=== PATIENT | female | born 1975 | race Caucasian/White ===

== ENCOUNTER 2016-04-17 09:05 | Inpatient (IN) ==
[2016-04-17] MEDS ORDERED: Albuterol 2.5 MG/3 ML NEBULIZER IH ONE (09:23)
[2016-04-17] MEDS ORDERED: CeFAZolin Pre 3,000 MG/100 ML 3,000 MG/100 ML BAG IVPB ONE (09:23)
[2016-04-17] MEDS ORDERED: MetroNIDAZOLE 500 MG/100 ML 500 MG/100 ML BAG IVPB ONE (09:24)
[2016-04-17] MEDS ORDERED: *HR* Belladonna Alkaloids/Opium 30 MG RECTAL SUPPOSITORY RC ONE (09:28)
[2016-04-17] MEDS ORDERED: Bupivacaine/EPI 1:200k 0.25%PF 10 ML VIAL INFILT ONE (09:29)
--- NOTE | 2016-04-17 09:29 | History & Physical Report ---
Date of Encounter: 04/17/16 Time of Encounter: 09:28 24 Hour HP Update - Instructions Instructions: If the History and Physical is less than 30 days old and was completed prior to A.M. admission and or procedure and has NOT been updated on calendar day of procedure please complete this update prior to performing procedure. - Update Patient reports changes in Medical Condition: No Changes in assessment/condition: No Changes in Medication: No Preop tests/diagnostics Reviewed: Yes Surgery Remains Indicated: Yes Consent for Planned Operative Procedure(s) Verified: Yes - Pre-Operative Checklist Preoperative Checklist Indicated: Yes Prophylactic Antibiotic Ordered: Yes Home Medications Include Beta Kiana: No Beta Kiana Taken Today (Day of Surgery): No Beta Kiana Taken Yesterday (Day Prior to Surgery): No Is VTE Prophylaxis Indicated?: Yes
[2016-04-17] MEDS ORDERED: Ringers Solution, Lactated 1,000 ML IVC SCH ×2 (09:30→14:07)
--- NOTE | 2016-04-17 10:12 | Anesthesia Evaluation PreOp ---
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: Other (Bipolar disorder) Other Medical History: Diabetes Type II ("pre-diabetes") Anesthesia History: Problems (nausea on only one occassion) Alcohol Use: rarely Drug use: none Medications and Allergies Albuterol Sulfate [Ventolin Hfa] 2 puff IH Q4H PRN 04/17/16 [History] Amitriptyline [Elavil] 10 mg PO BID 04/17/16 [History] Cetirizine HCl [24Hour Allergy] 10 mg PO DAILY 04/17/16 [History] Ergocalciferol (VITAMIN D2) [Vitamin D2] 50,000 unit PO QWEEK 04/17/16 [History] Ferrous Gluconate 324 mg PO DAILY 04/17/16 [History] Fluticasone Propionate Nasal [Flonase] 1 spray NS BID 04/17/16 [History] HYDROcodone/Acet 5/325 mg [[place]lin 5-325 mg] 1 tab PO Q6H PRN 04/17/16 [History] Nabumetone [Relafen] 500 mg PO BID 04/17/16 [History] Omeprazole [PriLOSEC] 20 mg PO BIDAC 04/17/16 [History] Oxcarbazepine [Oxtellar Xr] 300 mg PO BID 04/17/16 [History] Oxybutynin Chloride [Ditropan Xl] 10 mg PO DAILY 04/17/16 [History] Psyllium Husk [Fiber] 0.52 gm PO DAILY 04/17/16 [History] SUMAtriptan Succinate [Imitrex] 100 mg PO DAILY PRN 04/17/16 [History] Tizanidine HCl 4 mg PO HS 04/17/16 [History] Topiramate [Topamax] 50 mg PO QAM 04/17/16 [History] Topiramate [Topamax] 100 mg PO HS 04/17/16 [History] Trazodone HCl 100 - 200 mg PO Q12H 04/17/16 [History] Allergies rofecoxib [From Vioxx] Allergy (Severe, Verified 01/03/15 19:34) Swelling of Lip/Tongue/Throat Asenapine [From Saphris] Allergy (Intermediate, Verified 01/03/15 19:34) Hives mineral oil [From Aquaphor] Allergy (Intermediate, Verified 01/03/15 19:34) Blister petrolatum,hydrophilic [From Aquaphor] Allergy (Intermediate, Verified 01/03/15 19:34) Blister risperidone [From Risperdal] Allergy (Intermediate, Verified 01/03/15 19:34) Hives lamotrigine [From Lamictal] Allergy (Verified 04/10/16 11:17) Hives ana luisa bandage Allergy (Uncoded 04/10/16 11:17) Hives - Meds/Allergy Pre-op Review Medications Reviewed: Yes Allergies Reviewed: Yes Beta Blockers on Current Med List: No Anesthesia Results - Labs Laboratory Tests 02/04/16 02/04/16 02/04/16 09:44 09:44 09:44 WBC 5.3 Hgb Hct 40.2 Plt Count 262 Sodium 139 Potassium 3.9 Chloride 113 H Carbon Dioxide 18 L BUN 14 Creatinine 0.80 Est GFR ( Amer) > 60 Est GFR (Non-Af Amer) > 60 BUN/Creatinine Ratio 18 Glucose 104 H Est Mean Plasma Glucose 94 Hemoglobin A1c 4.9 Calculated Osmolality 289 Calcium 9.2 04/10/16 11:25 WBC Hgb 13.6 Hct Plt Count Sodium Potassium Chloride Carbon Dioxide BUN Creatinine Est GFR ( Amer) Est GFR (Non-Af Amer) BUN/Creatinine Ratio Glucose Est Mean Plasma Glucose Hemoglobin A1c Calculated Osmolality Calcium Anesthesia Exam Last Vital Signs Temp 98.1 F 04/17/16 09:32 Pulse 92 04/17/16 09:32 Resp 18 04/17/16 09:32 BP 119/81 04/17/16 09:32 Pulse Ox 96 04/17/16 09:32 Weight: 135 kg NPO (# of Hours): >> 8 hrs - HEENT Pupil (Motor): Pupils equal, EOMI Mallampati: III Teeth: Normal Oral Opening: Greater than 3 - D[employer]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
[2016-04-17] MEDS ORDERED: Metoclopramide 10 MG/2 ML VIAL ONE (10:13)
[2016-04-17] MEDS ORDERED: Gabapentin 300 MG CAPSULE ONE (10:13)
[2016-04-17] MEDS ORDERED: Acetaminophen IV 1,000 MG/100 ML INFUS..BTL ONE (10:14)
[2016-04-17] MEDS ORDERED: Famotidine 20 MG/2 ML VIAL ONE (10:14)
[2016-04-17] MEDS ORDERED: *HR* HYDROmorphone (PF) 1 MG/ML SYRINGE IVP PRN (12:40)
[2016-04-17] MEDS ORDERED: *HR* Promethazine 25 MG/ML VIAL IVP PRN (12:40)
[2016-04-17] MEDS ORDERED: *HR* Labetalol 100 MG/20 ML MDV IVP PRN (12:40)
--- NOTE | 2016-04-17 12:53 | Operative Note ---
Date of procedure: 04/17/16 Pre-op diagnosis: Abnormal uterine bleeding, dysmenorrhea, failed endometrial ablation Post-op diagnosis: same (With pelvic adhesions) Procedure: Robotic total laparoscopic hysterectomy bilateral salpingectomy and lysis of adhesions Complications: None Anesthesia: MITCHEL Surgeon: Oziel Parada Museum Security Chief: Renuka Russell Estimated blood loss (cc): 150 Specimen: Uterus cervix and bilateral tubes Condition: stable Disposition: PACU Procedure in Detail: Patient is a 41-year-old female who presented for robotic hysterectomy secondary to menorrhagia dysmenorrhea with failed endometrial ablation. Patient been having very heavy painful periods that are progressively getting worse. Patient has had an endometrial ablation in the past which worked for a while but has failedbleeding all the time. Patient states the pain associated with the bleeding is significant to the point she cannot tolerate the discomfort anymore. She is not a candidate for another ablation and has failed medical management. Patient has a history of 2 previous sections recommendation was robotic hysterectomy. Procedure: Patient was taken operating room where general anesthesia was found be adequate. She was placed in the dorsal lithotomy position prepped and draped in usual fashion. Timeout was then obtained, weighted speculum was placed in the vagina the anterior lip of the cervix was grasped with a single- tooth tenaculum uterus sounded to approximate 12 cm. Based on results of the ultrasound I suspected I perforated the uterus because uterus should have only been 8 cm. We decided this time we would still use a large Kadi tip to be safe. The antral of the cervix was secured with a suture and a 10 cm tip was then inserted into the cavity with a 3 cm cup and secured in place. Once this is in place that is present into the abdomen approximately 5 cm superior to them like us a 12 mm incision was then made and a 12 mm trocar was inserted under direct visualization. A pneumoperitoneum was obtained with 4 L of CO2 gas. She was noted to have omental adhesions to the intra-abdominal wall. 2 more incisions were made in the right and left flank and 2 8 mm trochars were inserted and a fourth incision was made approximately 12 cm distal and lateral on the right side and a 12 mm trocar was inserted. The da Aida robot was then port and secured in place. Attention was then turned to the console the omental adhesions were then taken down and attention was then turned to the pelvis it was noted at this time we had perforated the uterus with the balloon outside of the fundus. We still had good manipulation and the procedure was continued. Both ovaries were normal the fallopian tubes were taken off the ovary to the mesosalpinx and the ovary was from the uterus through the utero-ovarian ligament. Round ligaments were then transected we then skeletonized the uterine vessels they were identified and cauterized and transected. The anterior leaf of the broad ligament was opened up and were able to dissect off the bladder reflection from the lower uterine segment and all ovary down to the cervix. We are able to palpate the Kadi cup anteriorly and posteriorly entering enterally posteriorly find and the cup we then transected around the cup removing the uterus from the vagina. Once everything was free air was removed through the vagina. Pelvis was copiously irrigated no active bleeding noted the vaginal cuff was then closed using a 0 V lock suture in a running stitch from both corners to midline. Good hemostasis is noted pelvis was copiously irrigated and Kiley was applied to the were surfaces. It was at this point we terminated the procedure all instruments were removed the pneumoperitoneum released for by the removal of the trochars. The skin incisions were closed using a 4 Vicryl and subcutaneous manner. A B&O suppository was then placed rectally and the patient was taken to recovery room in stable condition. All needles lap sponge counts were correct 3 she did receive preoperative antibiotics.
--- NOTE | 2016-04-17 13:54 | Anesthesia Evaluation Post Op ---
Date of Encounter: 04/17/16 Time of Encounter: 13:52 - Vital Signs Vital Signs: Last Vital Signs Temp 97.1 F L 04/17/16 13:46 Pulse 83 04/17/16 13:46 Resp 16 04/17/16 13:46 BP 106/81 04/17/16 13:46 Pulse Ox 99 04/17/16 13:46 - Lungs Lungs: Clear Ascult./Percussion - Airway Airway: Non-obstructed - Cardiovascular Regular Rate - Mental Status Mental Status: Alert & Oriented, Answers Appropriately - Pain Pain Scale: 2 - Nausea Vomiting Nausea Vomiting: Not Present - Hydration Hydration: Ice chips - Discharge PostOp Status: Transfer Patient to floor
[2016-04-17] MEDS ORDERED: Naloxone 0.4 MG/ML INJ IVP PRN (14:07)
[2016-04-17] MEDS ORDERED: SUMAtriptan succinate 50 MG TABLET PO PRN (14:07)
[2016-04-17] MEDS: *HR* OxyCODONE/APAP 5/325 TABLET PO PRN (16:04)
[2016-04-17] MEDS: Fluticasone Propionate Nasal 50 MCG/SPRAY BOTTLE NS SCH (20:18)
[2016-04-17] MEDS: OXcarbazepine 150 MG TABLET PO SCH (20:31)
[2016-04-17] MEDS ORDERED: tiZANidine 4 MG TABLET PO SCH (21:00)
[2016-04-17] MEDS: *HR* HYDROmorphone 2 MG/ML SYRINGE IVP PRN (21:43)
[2016-04-18] MEDS: *HR* HYDROmorphone 2 MG/ML SYRINGE IVP PRN (03:46)
[2016-04-18 04:03] LABS: Basophils % 0.4 %; Eosinophils % 0.1 %; Hematocrit 32.3 % (35.3-44.9); Hemoglobin 11.5 g/dL (11.5-15.4); Immature Platelets 2.9 % (1.1-6.1); Lymphocytes # 0.9 K/mcL (0.6-4.6); Lymphocytes % 10.8 %; Mean Corpuscular HGB Conc 35.6 g/dL (31.6-35.5); Mean Corpuscular Hemoglobin 31.3 pg (28.0-33.3); Mean Platelet Volume 9.9 fL (9.4-12.4); Monocytes # 0.6 K/mcL (0.0-1.3); Monocytes % 7.6 %; Neutrophils # 6.4 K/mcL (1.6-8.9); Platelet Count 255 K/mcL (140-400); Red Blood Count 3.67 M/mcL (3.82-4.97); Red Cell Distribution Width 12.8 % (11.5-14.5); Segmented Neutrophils % 80.1 %
--- NOTE | 2016-04-18 07:18 | Discharge Summary ---
Date of Encounter: 04/18/16 Time of Encounter: 07:15 - Discharge Diagnosis (1) History of robot-assisted laparoscopic hysterectomy Priority: Primary Status: Acute (2) Menorrhagia with irregular cycle Priority: Secondary Status: Acute (3) Dysmenorrhea Priority: Secondary Status: Acute (4) Adenomyosis Priority: Secondary Status: Acute - Discharge Medications Prescriptions: OxyCODONE/APAP 5/325 [Percocet 5/325 MG] 1 each PO Q4HR PRN #40 tablet PRN Reason: Severe Pain (7-10) Home Medications: Albuterol Sulfate [Ventolin Hfa] 2 puff IH Q4H PRN 04/17/16 [History] Amitriptyline [Elavil] 10 mg PO BID 04/17/16 [History] Cetirizine HCl [24Hour Allergy] 10 mg PO DAILY 04/17/16 [History] Ergocalciferol (VITAMIN D2) [Vitamin D2] 50,000 unit PO QWEEK 04/17/16 [History] Ferrous Gluconate 324 mg PO DAILY 04/17/16 [History] Fluticasone Propionate Nasal [Flonase] 1 spray NS BID 04/17/16 [History] HYDROcodone/Acet 5/325 mg [[place] 5-325 mg] 1 tab PO Q6H PRN 04/17/16 [History] Nabumetone [Relafen] 500 mg PO BID 04/17/16 [History] Omeprazole [PriLOSEC] 20 mg PO BIDAC 04/17/16 [History] Oxcarbazepine [Oxtellar Xr] 300 mg PO BID 04/17/16 [History] Oxybutynin Chloride [Ditropan Xl] 10 mg PO DAILY 04/17/16 [History] Psyllium Husk [Fiber] 0.52 gm PO DAILY 04/17/16 [History] SUMAtriptan Succinate [Imitrex] 100 mg PO DAILY PRN 04/17/16 [History] Tizanidine HCl 4 mg PO HS 04/17/16 [History] Topiramate [Topamax] 50 mg PO QAM 04/17/16 [History] Topiramate [Topamax] 100 mg PO HS 04/17/16 [History] Trazodone HCl 100 - 200 mg PO Q12H 04/17/16 [History] OxyCODONE/APAP 5/325 [Percocet 5/325 MG] 1 each PO Q4HR PRN #40 tablet 04/18/16 [Rx] Allergies/Adverse Reactions: Allergies rofecoxib [From Vioxx] Allergy (Severe, Verified 01/03/15 19:34) Swelling of Lip/Tongue/Throat Asenapine [From Saphris] Allergy (Intermediate, Verified 01/03/15 19:34) Hives mineral oil [From Aquaphor] Allergy (Intermediate, Verified 01/03/15 19:34) Blister petrolatum,hydrophilic [From Aquaphor] Allergy (Intermediate, Verified 01/03/15 19:34) Blister risperidone [From Risperdal] Allergy (Intermediate, Verified 01/03/15 19:34) Hives lamotrigine [From Lamictal] Allergy (Verified 04/10/16 11:17) Hives ana luisa bandage Allergy (Uncoded 04/10/16 11:17) Hives Data Procedures and tests throughout hospitalization: Laboratory Tests 04/17/16 04/18/16 13:05 03:52 WBC 8.0 RBC 3.67 L Hgb 11.5 Hct 32.3 L MCV 88.0 MCH 31.3 MCHC 35.6 H RDW 12.8 Plt Count 255 MPV 9.9 Immature Gran % 1.0 Seg Neutrophils % 80.1 Lymphocytes % 10.8 Monocytes % 7.6 Eosinophils % 0.1 Basophils % 0.4 Neutrophils # 6.4 Lymphocytes # 0.9 Monocytes # 0.6 Eosinophils # 0.0 Basophils # 0.0 Immature Plt Fraction 2.9 POC Glucose 113 H Labs on day of discharge: Labs from last 24 hours 04/18/16 04/17/16 03:52 13:05 WBC 8.0 RBC 3.67 L Hgb 11.5 Hct 32.3 L MCV 88.0 MCH 31.3 MCHC 35.6 H RDW 12.8 Plt Count 255 MPV 9.9 Immature Gran % 1.0 Seg Neutrophils % 80.1 Lymphocytes % 10.8 Monocytes % 7.6 Eosinophils % 0.1 Basophils % 0.4 Neutrophils # 6.4 Lymphocytes # 0.9 Monocytes # 0.6 Eosinophils # 0.0 Basophils # 0.0 Immature Plt Fraction 2.9 POC Glucose 113 H Date of admission: 04/17/16 14:03 Primary care physician: Robin Dick MD Discharging clinician: Oziel Parada Anticipated date of discharge: 04/18/16 - Patient Status Disposition: Home, Self-Care Condition: Good Functional capacity at discharge: independent ambulation Overall status at discharge: patient is progressing back to baseline - Discharge Instructions Follow Up With: Robin Dick MD [Primary Care Provider] - Oziel Parada DO [Partnered Physician] - - Diet and Activity Activity: increase activity as tolerated Diet: advance to your usual diet 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 Patient had an endometrial ablation in the past which worked for a short period of time and had failed. Patient continued to have heavy irregular periods with severe pain. She was tried on medical management unsuccessfully. Ultrasound showed normal-size uterus it was recommended she have a hysterectomy with a history of previous sections robotic hysterectomy was recommended. She did undergo a robotic total laparoscopic hysterectomy bilateral salpingectomy with lysis of omental adhesions. Surgery was without any complications postoperative course was uncomplicated. Diet was advanced later on hospital day #0 by day #1 patient was tolerating diet and ambulating passing flatus and related to go home. Patient will be discharged home with prescription for Percocet 5 mg #40 she will follow up in office in 2 weeks. Patient's condition at the time of discharge was stable. Time Attestation: Total time spent providing and/or coordinating discharge services: Exam - Constitutional Vitals: Temp Pulse Resp BP Pulse Ox 98.9 F 101 18 101/64 96 04/17/16 23:42 04/17/16 23:42 04/17/16 23:42 04/17/16 23:42 04/17/16 23:42 General appearance IM: A&O X 3, pleasant, no acute distress, obese - Respiratory Respiratory exam: Present: CTAB - Cardiovascular Cardiovascular exam IM: Present: RRR - GI/Abdominal GI/Abdominal exam IM: normal bowel sounds Incision: normal, dry, intact - Rectal Rectal exam: deferred - VTE Documentation of Mechanical Device: Intermittent pneumatic compression device
[2016-04-18] MEDS: Fluticasone Propionate Nasal 50 MCG/SPRAY BOTTLE NS SCH (08:03)
[2016-04-18 08:17] VITALS: BP 104/70
[2016-04-18] MEDS: *HR* OxyCODONE/APAP 5/325 TABLET PO PRN (08:44)
[2016-04-18] MEDS ORDERED: Topiramate 25 MG TABLET PO SCH (09:00)
[2016-04-18] MEDS ORDERED: Cholecalciferol (D-3) 1,000 UNIT TABLET PO SCH (09:00)
[2016-04-18] MEDS ORDERED: Loratadine 10 MG TABLET PO SCH (09:00)
[2016-04-18] MEDS: OXcarbazepine 150 MG TABLET PO SCH (09:25)
== END 2016-04-18 10:00 | disposition home or self-care (01) | DRG 742 ==
LOC: SAMDAY 09:05 → 1NENUOBS 14:03
PROVIDERS: ADMIT Obstetrics & Gynecology; ATTEND Obstetrics & Gynecology

== ENCOUNTER 2018-08-18 18:35 | Observation (INO) ==
[2018-08-18 20:05] LABS: Basophils % 0.4 %; Eosinophils # 0.1 K/mcL (0.0-0.6); Eosinophils % 0.7 %; Hematocrit 36.3 % (35.3-44.9); Hemoglobin 12.4 g/dL (11.5-15.4); Immature Granulocytes % 0.3 % (0-4); Lymphocytes # 1.6 K/mcL (0.6-4.6); Lymphocytes % 17.5 %; Mean Corpuscular HGB Conc 34.2 g/dL (31.6-35.5); Mean Corpuscular Hemoglobin 30.5 pg (28.0-33.3); Mean Corpuscular Volume 89.2 fL (83.0-100.0); Mean Platelet Volume 10.8 fL (9.4-12.4); Monocytes # 0.8 K/mcL (0.0-1.3); Monocytes % 8.3 %; Neutrophils # 6.6 K/mcL (1.6-8.9); Platelet Count 264 K/mcL (140-400); Red Blood Count 4.07 M/mcL (3.82-4.97); Red Cell Distribution Width 13.1 % (11.5-14.5); Segmented Neutrophils % 72.8 %
--- NOTE | 2018-08-18 20:13 | Emergency Department Note ---
Disposition Clinical Impression: Diverticulitis, Lower GI bleed Disposition: Admitted As Inpatient General Adult HPI - General Chief complaint: ED Abdominal Pain Stated complaint: abdominal pain Time Seen by Provider: 08/18/18 18:38 Source: EMS Mode of arrival: ambulatory Limitations: no limitations Nursing Notes Reviewed: Yes Vital Signs Reviewed: Yes - History of Present Illness HPI Narrative: 43-year-old female with history of diverticulosis and intermittent GI bleeding comes in for acute on chronic rectal bleeding with grossly bloody diarrhea and diffuse abdominal cramping today. She states that these symptoms have been cons tant for the last 24 hours. She denies associated fevers. She does have nausea without vomiting. She denies any anticoagulant use. No chest pain or shortness of breath or lightheadedness or syncope. No sick contacts or recent travel. Pain Scale: 10 - Related Data Home Medications Medication Instructions Recorded Confirmed Cholecalciferol (D-3) [Vitamin D] 2,000 unit PO DAILY 08/26/17 07/02/18 Nabumetone [Relafen] 1,000 mg PO QAM 08/26/17 07/02/18 Nabumetone [Relafen] 500 mg PO QPM 08/26/17 07/02/18 Ascorbate Calcium [Vitamin C] 500 mg PO DAILY 07/02/18 07/03/18 Aspirin 81 mg PO DAILY 07/02/18 07/02/18 Carvedilol 12.5 mg PO BID 07/02/18 07/02/18 Colestipol HCl [Colestid] 1 gm PO BID 07/02/18 07/02/18 DULoxetine [Cymbalta] 20 mg PO BID 07/02/18 07/02/18 Ferrous Sulfate [Iron] 325 mg PO BID 07/02/18 07/02/18 Pantoprazole Sodium [Protonix] 40 mg PO DAILY 07/02/18 07/03/18 traZODone [TraZODone] 50 mg PO HS 07/02/18 07/02/18 OXcarbazepine [Oxcarbazepine] 300 mg PO BID 07/03/18 07/03/18 cloNIDine HCl [CloNIDine HCl] 0.1 mg PO DAILY 07/03/18 07/03/18 Previous Rx's Medication Instructions Recorded SUMAtriptan succinate [Imitrex] 25 mg PO DAILY PRN #10 tablet 07/03/18 Allergies Allergy/AdvReac Type Severity Reaction Status Date / Time rofecoxib [From Vioxx] Allergy Severe Swelling Verified 07/03/18 10:04 of Lip/Tongue/Throat Asenapine [From Saphris] Allergy Intermediate Hives Verified 07/03/18 10:04 mineral oil [From Aquaphor] Allergy Intermediate Blister Verified 07/03/18 10:04 petrolatum,hydrophilic Allergy Intermediate Blister Verified 07/03/18 10:04 [From Aquaphor] risperidone [From Risperdal] Allergy Intermediate Hives Verified 07/03/18 10:04 lamotrigine [From Lamictal] Allergy Hives Verified 07/03/18 10:04 oxycodone [Oxycodone] Allergy Rash Verified 07/03/18 10:04 ana luisa bandage Allergy Hives Uncoded 04/10/16 11:17 All systems ED: reviewed and negative except as stated. Past Medical History - Past Medical History Attestation: Yes The following information was validated with the patient. Source: patient Medical history: Reports: arthritis, asthma, GERD, hypertension, migraine, other Surgical history: Reports: , cholecystectomy, knee replacement Psychiatric history: Reports: bipolar, depression - Social History Smoking Status: Current some day smoker Smokeless Tobacco Status: No Alcohol use: Reports: rarely Drug use: Reports: none Physical Exam - General Limitations: no limitations General appearance: alert - Head Head exam: atraumatic, normocephalic, normal inspection - Eye Eye exam: Present: normal appearance, PERRL, EOMI - ENT ENT exam: normal exam, normal oropharynx, mucous membranes moist - Neck Neck exam: Present: normal inspection, full ROM, trachea midline - Chest Chest inspection: Present: normal inspection, symmetric chest wall rise - Respiratory Respiratory exam: Present: normal lung sounds bilaterally - Cardiovascular Cardiovascular exam: Present: regular rate, normal rhythm, normal heart sounds - Abdominal Exam Abdominal exam: Present: soft, tenderness (Mild diffuse tenderness which is worst in the left lower quadrant.) - Extremities Exam Extremities exam: Present: normal inspection, full ROM - Back Exam Back exam: Present: normal inspection, full ROM. Absent: CVA tenderness (R), CVA tenderness (L) - Neurological Exam Neurological exam: Present: alert, oriented X3 - Psychiatric Psychiatric exam: Present: normal affect, normal mood - Skin Skin exam: Present: warm, dry Course Course Narrative: Patient with evaluation here notable for uncomplicated diverticulitis on CT scan. Patient without significant anemia or hypotension here. She had an episode of grossly bloody diarrhea per the nursing staff in the emergency department. Patient was given Cipro and Flagyl and admitted for further evaluation and management. EKG interpreted by me shows sinus tachycardia at 105 with left axis deviation and QTC of 47. Normal ST segments. Abnormal EKG. Vital Signs Temperature 97.8 F 08/18/18 18:44 Pulse Rate 108 08/18/18 18:44 Respiratory Rate 20 08/18/18 18:44 Blood Pressure 141/86 08/18/18 18:44 O2 Sat by Pulse Oximetry 99 08/18/18 18:44 Temperature 97.8 F 08/18/18 18:44 Pulse Rate 108 08/18/18 18:44 Respiratory Rate 20 08/18/18 18:44 Blood Pressure 141/86 08/18/18 18:44 O2 Sat by Pulse Oximetry 99 08/18/18 18:44 Oxygen Delivery Oxygen Delivery Room Air Medical Decision Making - Lab Data Result diagrams: 08/18/18 19:51 08/18/18 19:51 Lab Results 08/18/18 08/18/18 08/18/18 Range/Units 19:51 19:51 19:51 WBC 9.1 (4.3-11.1) K/mcL RBC 4.07 (3.82-4.97) M/mcL Hgb 12.4 (11.5-15.4) g/dL Hct 36.3 (35.3-44.9) % MCV 89.2 (83.0-100.0) fL MCH 30.5 (28.0-33.3) pg MCHC 34.2 (31.6-35.5) g/dL RDW 13.1 (11.5-14.5) % Plt Count 264 (140-400) K/mcL MPV 10.8 (9.4-12.4) fL Immature Gran % 0.3 (0-4) % Seg Neutrophils % 72.8 % Lymphocytes % 17.5 % Monocytes % 8.3 % Eosinophils % 0.7 % Basophils % 0.4 % Neutrophils # 6.6 (1.6-8.9) K/mcL Lymphocytes # 1.6 (0.6-4.6) K/mcL Monocytes # 0.8 (0.0-1.3) K/mcL Eosinophils # 0.1 (0.0-0.6) K/mcL Basophils # 0.0 (0.0-0.2) K/mcL PT (9.4-12.1) Seconds INR Sodium 138 (136-145) mEq/L Potassium 3.3 L (3.5-5.1) mEq/L Chloride 107 (98-107) mEq/L Carbon Dioxide 24 (23-29) mEq/L BUN 14 (6-20) mg/dL Creatinine 0.60 (0.60-1.20) mg/dL Est GFR ( Amer) > 60 (> 60) Est GFR (Non-Af Amer) > 60 (> 60) BUN/Creatinine Ratio 23 (6-26) Glucose 130 H (70-105) mg/dL Calculated Osmolality 288 (280-300) Lactic Acid 1.6 (0.5-2.2) mmol/L Calcium 9.4 (8.6-10.3) mg/dL Total Bilirubin 1.0 (0.3-1.0) mg/dL Direct Bilirubin 0.1 (0.0-0.2) mg/dL Indirect Bilirubin 0.9 (0.0-1.2) mg/dL AST 16 (13-39) Units/L ALT 21 (7-52) Units/L Alkaline Phosphatase 47 (34-104) Units/L Serum Total Protein 6.2 L (6.4-8.9) g/dL Albumin 4.0 (3.5-5.7) g/dL Globulin 2.2 L (2.4-3.5) g/dL Albumin/Globulin Ratio 1.8 (1.1-2.2) Lipase 12 (11-82) Units/L 08/18/18 Range/Units 19:51 WBC (4.3-11.1) K/mcL RBC (3.82-4.97) M/mcL Hgb (11.5-15.4) g/dL Hct (35.3-44.9) % MCV (83.0-100.0) fL MCH (28.0-33.3) pg MCHC (31.6-35.5) g/dL RDW (11.5-14.5) % Plt Count (140-400) K/mcL MPV (9.4-12.4) fL Immature Gran % (0-4) % Seg Neutrophils % % Lymphocytes % % Monocytes % % Eosinophils % % Basophils % % Neutrophils # (1.6-8.9) K/mcL Lymphocytes # (0.6-4.6) K/mcL Monocytes # (0.0-1.3) K/mcL Eosinophils # (0.0-0.6) K/mcL Basophils # (0.0-0.2) K/mcL PT 11.2 (9.4-12.1) Seconds INR 1.0 Sodium (136-145) mEq/L Potassium (3.5-5.1) mEq/L Chloride (98-107) mEq/L Carbon Dioxide (23-29) mEq/L BUN (6-20) mg/dL Creatinine (0.60-1.20) mg/dL Est GFR ( Amer) (> 60) Est GFR (Non-Af Amer) (> 60) BUN/Creatinine Ratio (6-26) Glucose (70-105) mg/dL Calculated Osmolality (280-300) Lactic Acid (0.5-2.2) mmol/L Calcium (8.6-10.3) mg/dL Total Bilirubin (0.3-1.0) mg/dL Direct Bilirubin (0.0-0.2) mg/dL Indirect Bilirubin (0.0-1.2) mg/dL AST (13-39) Units/L ALT (7-52) Units/L Alkaline Phosphatase (34-104) Units/L Serum Total Protein (6.4-8.9) g/dL Albumin (3.5-5.7) g/dL Globulin (2.4-3.5) g/dL Albumin/Globulin Ratio (1.1-2.2) Lipase (11-82) Units/L
[2018-08-18 20:14] LABS: Prothrombin Time 11.2 Seconds (9.4-12.1)
[2018-08-18 20:25] LABS: Alanine Aminotransferase 21 Units/L (7-52); Albumin/Globulin Ratio 1.8 (1.1-2.2); Alkaline Phosphatase 47 Units/L (34-104); Aspartate Amino Transferase 16 Units/L (13-39); BUN/Creatinine Ratio 23 (6-26); Bilirubin,Direct 0.1 mg/dL (0.0-0.2); Bilirubin,Indirect 0.9 mg/dL (0.0-1.2); Blood Urea Nitrogen 14 mg/dL (6-20); Calcium 9.4 mg/dL (8.6-10.3); Carbon Dioxide 24 mEq/L (23-29); Chloride 107 mEq/L (98-107); Globulin 2.2 g/dL (2.4-3.5); Glucose 130 mg/dL (70-105); Lipase 12 Units/L (11-82); Osmolality,Calculated 288 (280-300); Potassium 3.3 mEq/L (3.5-5.1); Sodium 138 mEq/L (136-145); Total Protein 6.2 g/dL (6.4-8.9); eGFR For Non-African Americans > 60 (> 60)
[2018-08-18] MEDS ORDERED: MetroNIDAZOLE 500 MG/100 ML 500 MG/100 ML BAG IVPB ONE (20:55)
[2018-08-18] MEDS ORDERED: 0.9 % Sodium Chloride 1,000 ML IVC ONE (21:31)
[2018-08-18 22:03] LABS: Bilirubin,Urine Negative (Negative); Blood,Urine Negative (Negative); Clarity,Urine Clear (Clear); Color,Urine Yellow (Yellow); Glucose,Urine (UA) Normal (Normal); Ketones,Urine Negative (Negative); Leukocyte Esterase,Urine Negative (Negative); Nitrite,Urine Negative (Negative); Protein,Urine Negative (Neg-Trace); Specific Gravity,Urine > 1.030 (1.010-1.025); Urobilinogen,Urine Normal (Normal)
[2018-08-19] MEDS: MetroNIDAZOLE 500 MG/100 ML 500 MG/100 ML BAG IVPB SCH ×2 (00:37→07:34)
[2018-08-19] MEDS ORDERED: Naloxone 0.4 MG/ML INJ IVP PRN (02:45)
[2018-08-19] MEDS ORDERED: *HR* Promethazine 25 MG/ML VIAL IVP PRN (02:45)
[2018-08-19] MEDS ORDERED: traMADol 50 MG TABLET PO PRN (02:45)
[2018-08-19] MEDS ORDERED: Acetaminophen 325 MG TABLET PO PRN (02:45)
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
[2018-08-19] MEDS: Pantoprazole 40 MG in 0.9 % Sodium Chloride Mini Bag 100 ML IVC SCH ×2 (04:36→14:12)
[2018-08-19 05:00] LABS: Hemoglobin 11.2 g/dL (11.5-15.4); Mean Corpuscular HGB Conc 33.9 g/dL (31.6-35.5); Mean Corpuscular Hemoglobin 30.9 pg (28.0-33.3); Mean Corpuscular Volume 90.9 fL (83.0-100.0); Mean Platelet Volume 10.7 fL (9.4-12.4); Platelet Count 223 K/mcL (140-400); Red Blood Count 3.63 M/mcL (3.82-4.97); Red Cell Distribution Width 13.2 % (11.5-14.5)
[2018-08-19 05:29] LABS: BUN/Creatinine Ratio 18 (6-26); Blood Urea Nitrogen 11 mg/dL (6-20); Calcium 8.7 mg/dL (8.6-10.3); Carbon Dioxide 22 mEq/L (23-29); Chloride 110 mEq/L (98-107); Chol/HDL Ratio 5.3 (0-4.9); Cholesterol 139 mg/dL (< 200); Glucose 110 mg/dL (70-105); HDL Cholesterol 26 mg/dL (40-59); LDL Cholesterol,Calculated 65 mg/dL (0-99); Osmolality,Calculated 294 (280-300); Potassium 3.4 mEq/L (3.5-5.1); Sodium 142 mEq/L (136-145); Triglycerides 239 mg/dL (< 150); eGFR For Non-African Americans > 60 (> 60)
[2018-08-19] MEDS ORDERED: 0.9 % Sodium Chloride 1,000 ML IVC SCH (07:00)
[2018-08-19 07:15] LABS: Estimated Average Glucose 117 mg/dl; Hemoglobin A1C 5.7 %
[2018-08-19] MEDS ORDERED: (Colestipol Hcl [Colestid] 1 GM) PO SCH (09:00)
[2018-08-19] MEDS ORDERED: cloNIDine HCl 0.1 MG TABLET PO SCH (09:00)
[2018-08-19] MEDS ORDERED: Lactobacillus 1 EACH CAP.SPRINK PO SCH (09:00)
[2018-08-19] MEDS ORDERED: NON-FORMULARY MEDICATION 1 EACH EACH (Pantoprazole Sodium [Protonix] 40 MG) PO SCH (09:00)
--- NOTE | 2018-08-19 09:10 | Event Note ---
Date of Encounter: 08/19/18 Time of Encounter: 08:55 It was seen and examined earlier this morning by hospitalist services. She was seen and examined this morning at bedside no active bleeding noted at this time patient states she has had 2 bowel movements since admitted with no bleeding. Abdomen soft nontender tolerating oral intake at this time. She does not express any suicidal ideations at this time but she does express family stress and anxiety. Psychiatry has been consulted and GI also has been consult appreciate recommendations
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
[2018-08-19 15:08] VITALS: BP 122/76
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
--- NOTE | 2018-08-19 17:44 | Electrocardiograph Report ---
[address] [address] Test Date: 2018-08-18 Pat Name: Maribel Chaudhry Department: [id number] Room: 3B16 Gender: F Residential Field Manager: : 1975 Requested By: Jaguar Álvarez Order Number: [id number] Reading MD: Karen Brennan Measurements Intervals [place] Rate: 105 P: 24 NE: 140 QRS: -39 QRSD: 97 T: 59 QT: 368 QTc: 487 Interpretive Statements Sinus tachycardia Left axis deviation Electronically Signed On 08-19-2018 17:42:24 EDT by Karen Brennan
--- NOTE | 2018-08-20 10:12 | Electrocardiograph Report ---
[address] [address] Test Date: 2018-08-19 Pat Name: Maribel Chaudhry Department: 113 Room: 3B16 Gender: F Manager Music: : 1975 Requested By: Abbey Santana Order Number: [id number] Reading MD: Michael Puckett Measurements Intervals [place] Rate: 92 P: 27 PA: 154 QRS: -28 QRSD: 114 T: -8 QT: 369 QTc: 419 Interpretive Statements SINUS RHYTHM BORDERLINE LEFT AXIS DEVIATION [QRS AXIS < -20] Electronically Signed On 08-20-2018 10:10:57 EDT by Michael Puckett
== END 2018-08-19 16:53 | disposition home or self-care (01) ==
LOC: 3BNU 18:35 → EMEROOARM 18:35 → 3BNU 23:38
PROVIDERS: ADMIT Internal Medicine; ATTEND Internal Medicine

== ENCOUNTER 2019-01-13 11:41 | Observation (INO) ==
[2019-01-13] MEDS ORDERED: Isovue-370 500 ML BOTTLE IVP ONE (11:59)
[2019-01-13] MEDS ORDERED: *HR* Nalbuphine 10 MG/ML AMPUL IV ONE (12:00)
[2019-01-13 12:24] LABS: Basophils % 0.4 %; Eosinophils # 0.1 K/mcL (0.0-0.6); Eosinophils % 0.8 %; Hematocrit 36.9 % (35.3-44.9); Hemoglobin 11.8 g/dL (11.5-15.4); Immature Granulocytes % 0.5 % (0-4); Lymphocytes # 1.1 K/mcL (0.6-4.6); Lymphocytes % 13.4 %; Mean Corpuscular Hemoglobin 27.3 pg (28.0-33.3); Mean Corpuscular Volume 85.2 fL (83.0-100.0); Mean Platelet Volume 10.1 fL (9.4-12.4); Monocytes # 0.5 K/mcL (0.0-1.3); Monocytes % 6.1 %; Neutrophils # 6.7 K/mcL (1.6-8.9); Platelet Count 363 K/mcL (140-400); Red Blood Count 4.33 M/mcL (3.82-4.97); Red Cell Distribution Width 13.5 % (11.5-14.5); Segmented Neutrophils % 78.8 %; White Blood Count 8.5 K/mcL (4.3-11.1)
[2019-01-13 12:33] LABS: Prothrombin Time 11.3 Seconds (9.4-12.1)
[2019-01-13 12:41] LABS: Alanine Aminotransferase 12 Units/L (7-52); Albumin 3.9 g/dL (3.5-5.7); Albumin/Globulin Ratio 1.6 (1.1-2.2); Alkaline Phosphatase 54 Units/L (34-104); Aspartate Amino Transferase 10 Units/L (13-39); BUN/Creatinine Ratio 17 (6-26); Bilirubin,Total 0.7 mg/dL (0.3-1.0); Blood Urea Nitrogen 12 mg/dL (6-20); Calcium 8.8 mg/dL (8.6-10.3); Carbon Dioxide 20 mEq/L (23-29); Chloride 105 mEq/L (98-107); Globulin 2.4 g/dL (2.4-3.5); Glucose 166 mg/dL (70-105); Osmolality,Calculated 286 (280-300); Potassium 3.6 mEq/L (3.5-5.1); Sodium 136 mEq/L (136-145); Total Protein 6.3 g/dL (6.4-8.9); eGFR For African Americans > 60 (> 60); eGFR For Non-African Americans > 60 (> 60)
[2019-01-13] MEDS ORDERED: Ondansetron 4 MG/2 ML VIAL IVP PRN (15:21)
[2019-01-13] MEDS ORDERED: Naloxone 0.4 MG/ML INJ IVP PRN (15:21)
[2019-01-13] MEDS ORDERED: D5% in Lactated Ringers 1,000 ML IVC SCH (15:30)
[2019-01-13 15:43] LABS: Basophils % 0.4 %; Eosinophils % 0.7 %; Hematocrit 34.8 % (35.3-44.9); Hemoglobin 11.2 g/dL (11.5-15.4); Immature Granulocytes % 0.3 % (0-4); Lymphocytes % 14.8 %; Mean Corpuscular HGB Conc 32.2 g/dL (31.6-35.5); Mean Corpuscular Hemoglobin 27.3 pg (28.0-33.3); Mean Corpuscular Volume 84.7 fL (83.0-100.0); Mean Platelet Volume 9.8 fL (9.4-12.4); Monocytes % 8.6 %; Platelet Count 348 K/mcL (140-400); Red Blood Count 4.11 M/mcL (3.82-4.97); Red Cell Distribution Width 13.4 % (11.5-14.5); Segmented Neutrophils % 75.2 %; White Blood Count 9.1 K/mcL (4.3-11.1)
[2019-01-13 15:44] LABS: Eosinophils # 0.1 K/mcL (0.0-0.6); Lymphocytes # 1.3 K/mcL (0.6-4.6); Monocytes # 0.8 K/mcL (0.0-1.3); Neutrophils # 6.8 K/mcL (1.6-8.9)
[2019-01-13] MEDS ORDERED: Albuterol 2.5 MG/3 ML NEBULIZER IH PRN (16:54)
[2019-01-13] MEDS ORDERED: *HR* HYDROcodone/Acet 5/325 mg TABLET PO PRN (17:22)
[2019-01-13] MEDS: Pantoprazole 40 MG VIAL IVP SCH (18:32)
[2019-01-14 00:57] LABS: Bilirubin,Urine Negative (Negative); Blood,Urine Negative (Negative); Clarity,Urine Clear (Clear); Color,Urine Yellow (Yellow); Glucose,Urine (UA) Normal (Normal); Ketones,Urine Negative (Negative); Leukocyte Esterase,Urine Negative (Negative); Nitrite,Urine Negative (Negative); PH,Urine 5.5 pH Units (5.0-8.0); Protein,Urine Negative (Neg-Trace); Specific Gravity,Urine > 1.030 (1.010-1.025); Urobilinogen,Urine Normal (Normal)
[2019-01-14 01:15] LABS: Basophils % 0.4 %; Eosinophils # 0.1 K/mcL (0.0-0.6); Eosinophils % 0.7 %; Hematocrit 32.7 % (35.3-44.9); Hemoglobin 10.4 g/dL (11.5-15.4); Immature Granulocytes % 0.4 % (0-4); Lymphocytes # 1.4 K/mcL (0.6-4.6); Mean Corpuscular HGB Conc 31.8 g/dL (31.6-35.5); Mean Corpuscular Hemoglobin 26.5 pg (28.0-33.3); Mean Corpuscular Volume 83.4 fL (83.0-100.0); Mean Platelet Volume 10.3 fL (9.4-12.4); Monocytes # 0.6 K/mcL (0.0-1.3); Monocytes % 7.9 %; Neutrophils # 5.4 K/mcL (1.6-8.9); Platelet Count 316 K/mcL (140-400); Red Blood Count 3.92 M/mcL (3.82-4.97); Red Cell Distribution Width 13.7 % (11.5-14.5); Segmented Neutrophils % 71.6 %; White Blood Count 7.5 K/mcL (4.3-11.1)
[2019-01-14 04:54] LABS: BUN/Creatinine Ratio 14 (6-26); Blood Urea Nitrogen 8 mg/dL (6-20); Calcium 8.5 mg/dL (8.6-10.3); Carbon Dioxide 23 mEq/L (23-29); Chloride 105 mEq/L (98-107); Glucose 108 mg/dL (70-105); Magnesium 1.9 mg/dL (1.6-2.6); Osmolality,Calculated 279 (280-300); Phosphorous 3.4 mg/dL (2.7-4.5); Potassium 3.4 mEq/L (3.5-5.1); Sodium 135 mEq/L (136-145); eGFR For African Americans > 60 (> 60); eGFR For Non-African Americans > 60 (> 60)
[2019-01-14] MEDS: Pantoprazole 40 MG VIAL IVP SCH ×2 (05:27→17:29)
[2019-01-14] MEDS ORDERED: Potassium Chloride Elixir 20 MEQ/15 ML UDC PO ONE (08:03)
[2019-01-14] MEDS: Venlafaxine XR (24 HR) 37.5 MG CAP.ER.24H PO SCH (08:16)
[2019-01-14] MEDS: 0.9 % Sodium Chloride 1,000 ML IVC SCH (09:20)
[2019-01-14] MEDS ORDERED: *HR* Promethazine 25 MG/ML VIAL ONE (12:03)
[2019-01-14] MEDS ORDERED: tiZANidine 4 MG TABLET PO PRN (13:47)
[2019-01-14] MEDS ORDERED: Fluticasone Propionate Nasal 50 MCG/SPRAY BOTTLE NS PRN (13:47)
[2019-01-14] MEDS ORDERED: Famotidine 20 MG TABLET PO SCH (21:00)
[2019-01-14] MEDS: Budesonide/Formoterol 80/4.5 1 PUFF INH IH SCH (22:02)
[2019-01-15] MEDS: 0.9 % Sodium Chloride 1,000 ML IVC SCH (02:19)
[2019-01-15 04:15] LABS: Basophils % 0.6 %; Eosinophils % 0.5 %; Hematocrit 32.5 % (35.3-44.9); Hemoglobin 10.4 g/dL (11.5-15.4); Immature Granulocytes % 0.3 % (0-4); Lymphocytes # 0.9 K/mcL (0.6-4.6); Lymphocytes % 14.5 %; Mean Corpuscular Hemoglobin 26.8 pg (28.0-33.3); Mean Corpuscular Volume 83.8 fL (83.0-100.0); Mean Platelet Volume 9.9 fL (9.4-12.4); Monocytes # 0.5 K/mcL (0.0-1.3); Monocytes % 8.3 %; Neutrophils # 4.8 K/mcL (1.6-8.9); Platelet Count 285 K/mcL (140-400); Red Blood Count 3.88 M/mcL (3.82-4.97); Red Cell Distribution Width 13.5 % (11.5-14.5); Segmented Neutrophils % 75.8 %; White Blood Count 6.3 K/mcL (4.3-11.1)
[2019-01-15 04:34] LABS: BUN/Creatinine Ratio 13 (6-26); Blood Urea Nitrogen 8 mg/dL (6-20); Calcium 8.8 mg/dL (8.6-10.3); Carbon Dioxide 26 mEq/L (23-29); Chloride 105 mEq/L (98-107); Glucose 101 mg/dL (70-105); Osmolality,Calculated 288 (280-300); Potassium 3.5 mEq/L (3.5-5.1); Sodium 140 mEq/L (136-145); eGFR For African Americans > 60 (> 60); eGFR For Non-African Americans > 60 (> 60)
[2019-01-15] MEDS: Pantoprazole 40 MG VIAL IVP SCH (05:29)
[2019-01-15] MEDS: Budesonide/Formoterol 80/4.5 1 PUFF INH IH SCH (07:49)
[2019-01-15] MEDS ORDERED: VENLAFAXINE HCL 37.5 MG PO SCH (09:00)
[2019-01-15] MEDS: Venlafaxine XR (24 HR) 37.5 MG CAP.ER.24H PO SCH (09:01)
[2019-01-15] MEDS ORDERED: Propofol 500 MG/50 ML INFUS..BTL ONE (14:29)
[2019-01-15] MEDS ORDERED: Lidocaine -MPF 2% 2 ML VIAL ONE (14:29)
[2019-01-15 16:15] VITALS: BP 112/81
== END 2019-01-15 17:53 | disposition home or self-care (01) ==
LOC: 3ANU 11:41 → EMEROOARM 11:41 → SUATTDRO 15:30 → 3ANU 16:50
PROVIDERS: ADMIT Internal Medicine; ATTEND Family Medicine
PROC: ENDOEBX (2019-01-15 13:50)

== ENCOUNTER 2020-04-19 09:37 | Inpatient (IN) ==
[2020-04-19] MEDS ORDERED: 0.9 % Sodium Chloride 1,000 ML IVC ONE (10:04)
[2020-04-19 10:25] LABS: Nucleated Red Blood Cells 0.3 /100 WBC (0)
[2020-04-19 10:26] LABS: Hematocrit 21.5 % (35.3-44.9); Mean Corpuscular HGB Conc 27.4 g/dL (31.6-35.5); Mean Corpuscular Hemoglobin 19.5 pg (28.0-33.3); Mean Platelet Volume 9.5 fL (9.4-12.4); Monocytes # 0.5 K/mcL (0.0-1.3); Platelet Count 416 K/mcL (140-400); Red Blood Count 3.03 M/mcL (3.82-4.97); Red Cell Distribution Width 19.6 % (11.5-14.5); White Blood Count 6.4 K/mcL (4.3-11.1)
[2020-04-19 10:38] LABS: Activated Partial Thrombo Time 28.9 Seconds (26.0-36.0)
[2020-04-19 10:40] LABS: Hemoglobin 5.9 g/dL (11.5-15.4)
[2020-04-19 10:47] LABS: Alanine Aminotransferase 8 Units/L (7-52); Albumin 3.6 g/dL (3.5-5.7); Albumin/Globulin Ratio 1.4 (1.1-2.2); Alkaline Phosphatase 42 Units/L (34-104); Aspartate Amino Transferase 9 Units/L (13-39); BUN/Creatinine Ratio 16 (6-26); Bilirubin,Total 0.6 mg/dL (0.3-1.0); Blood Urea Nitrogen 9 mg/dL (6-20); Calcium 8.8 mg/dL (8.6-10.3); Carbon Dioxide 22 mEq/L (23-29); Chloride 108 mEq/L (98-107); Globulin 2.5 g/dL (2.4-3.5); Glucose 126 mg/dL (70-105); Osmolality,Calculated 286 (280-300); Potassium 3.5 mEq/L (3.5-5.1); Sodium 138 mEq/L (136-145); Total Protein 6.1 g/dL (6.4-8.9); Troponin I < 0.03 ng/mL (< 0.04); eGFR For African Americans > 60 (> 60); eGFR For Non-African Americans > 60 (> 60)
[2020-04-19] MEDS ORDERED: Isovue-370 500 ML BOTTLE IVP ONE (10:54)
[2020-04-19] MEDS ORDERED: 0.9 % Sodium Chloride 250 ML ONE ×2 (11:32→15:41)
[2020-04-19 11:53] LABS: Lymphocytes # 1.2 K/mcL (0.6-4.6); Neutrophils # 4.7 K/mcL (1.6-8.9); Platelet Estimate Increased (Normal)
[2020-04-19 11:54] LABS: Anisocytosis 1+ (Not Present); Polychromasia 1+ (Not Present)
[2020-04-19] MEDS ORDERED: Doxycycline 100 MG in 0.9 % Sodium Chloride Mini Bag 100 ML IVPB ONE (12:20)
[2020-04-19] MEDS ORDERED: Pantoprazole 40 MG in 0.9 % Sodium Chloride Mini Bag 100 ML IVC SCH (13:30)
[2020-04-19] MEDS ORDERED: Naloxone 0.4 MG/ML INJ IVP PRN (13:44)
[2020-04-19] MEDS ORDERED: Acetaminophen 325 MG TABLET PO PRN (13:44)
[2020-04-19] MEDS ORDERED: Ondansetron 4 MG/2 ML VIAL IVP PRN (13:44)
[2020-04-19 13:59] LABS: Bilirubin,Urine Negative (Negative); Blood,Urine Negative (Negative); Clarity,Urine Clear (Clear); Color,Urine Colorless (Yellow); Glucose,Urine (UA) Normal (Normal); Ketones,Urine Negative (Negative); Leukocyte Esterase,Urine Negative (Negative); Nitrite,Urine Negative (Negative); Protein,Urine Trace mg/dL (Neg-Trace); Specific Gravity,Urine > 1.030 (1.010-1.025); Urobilinogen,Urine Normal (Normal)
[2020-04-19] MEDS ORDERED: *HR* Dextrose 50 % in Water (Vial) 50 ML VIAL IVP PRN (14:32)
[2020-04-19] MEDS ORDERED: Dextrose Gel 15 GM/37.5 ML TUBE PO PRN ×2 (14:32)
[2020-04-19] MEDS ORDERED: D5% in Water 1,000 ML IVC PRN (14:32)
[2020-04-19] MEDS ORDERED: hydrALAZINE 10 MG TABLET PO PRN (14:35)
[2020-04-19] MEDS: Nicotine 21 MG PATCH.TD24 TD SCH (17:31)
[2020-04-19] MEDS: tiZANidine 4 MG TABLET PO SCH (20:09)
[2020-04-19 22:37] LABS: Hematocrit 22.5 % (35.3-44.9); Hemoglobin 6.5 g/dL (11.5-15.4)
[2020-04-20] MEDS ORDERED: Pantoprazole 40 MG in 0.9 % Sodium Chloride Mini Bag 100 ML IVC SCH (02:00)
[2020-04-20 02:21] LABS: Hematocrit 22.7 % (35.3-44.9); Hemoglobin 6.5 g/dL (11.5-15.4); Mean Corpuscular HGB Conc 28.6 g/dL (31.6-35.5); Mean Corpuscular Hemoglobin 20.8 pg (28.0-33.3); Mean Corpuscular Volume 72.8 fL (83.0-100.0); Mean Platelet Volume 9.5 fL (9.4-12.4); Platelet Count 408 K/mcL (140-400); Red Blood Count 3.12 M/mcL (3.82-4.97); Red Cell Distribution Width 20.9 % (11.5-14.5); White Blood Count 6.3 K/mcL (4.3-11.1)
[2020-04-20 02:22] LABS: INR 1.1; Prothrombin Time 12.9 Seconds (9.4-12.1)
[2020-04-20 02:25] LABS: Activated Partial Thrombo Time 28.2 Seconds (26.0-36.0)
[2020-04-20 02:39] LABS: BUN/Creatinine Ratio 12 (6-26); Blood Urea Nitrogen 7 mg/dL (6-20); Calcium 8.4 mg/dL (8.6-10.3); Carbon Dioxide 22 mEq/L (23-29); Chloride 107 mEq/L (98-107); Cholesterol 135 mg/dL (< 200); Glucose 105 mg/dL (70-105); HDL Cholesterol 27 mg/dL (40-59); LDL Cholesterol,Calculated 70 mg/dL (< 100); Magnesium 1.9 mg/dL (1.6-2.6); Osmolality,Calculated 282 (280-300); Potassium 3.4 mEq/L (3.5-5.1); Sodium 137 mEq/L (136-145); Triglycerides 189 mg/dL (< 150); eGFR For African Americans > 60 (> 60); eGFR For Non-African Americans > 60 (> 60)
[2020-04-20 02:42] LABS: % Iron Saturation 8 % (15-50); Iron 30 mcg/dL (50-170); Transferrin 268 mg/dL (203-362)
[2020-04-20 03:00] LABS: Ferritin < 8 ng/mL (10-120)
[2020-04-20 04:07] LABS: Estimated Average Glucose 126 mg/dl
[2020-04-20] MEDS ORDERED: 0.9 % Sodium Chloride 250 ML ONE (07:48)
[2020-04-20] MEDS: Nicotine 21 MG PATCH.TD24 TD SCH (08:15)
[2020-04-20] MEDS ORDERED: Potassium Chloride 20 MEQ, Lidocaine 1% 2 ML in 0.9 % Sodium Chloride 250 ML IVPB ONE (08:49)
[2020-04-20] MEDS ORDERED: hydrOXYzine pamoate 25 MG CAPSULE PO ONE (09:51)
[2020-04-20 12:08] LABS: Hematocrit 26.3 % (35.3-44.9); Hemoglobin 7.6 g/dL (11.5-15.4)
[2020-04-20] MEDS ORDERED: Iron Sucrose Complex 400 MG in 0.9 % Sodium Chloride 250 ML IVPB ONE (12:09)
[2020-04-20] MEDS: Pantoprazole 40 MG in 0.9 % Sodium Chloride Mini Bag 100 ML IVC SCH ×2 (18:11→21:58)
[2020-04-20 18:32] LABS: Hematocrit 26.7 % (35.3-44.9); Hemoglobin 7.6 g/dL (11.5-15.4)
[2020-04-20] MEDS ORDERED: Famotidine 20 MG TABLET PO SCH (21:00)
[2020-04-20] MEDS: tiZANidine 4 MG TABLET PO SCH (22:00)
[2020-04-21 02:12] LABS: Basophils % 0.5 %; Eosinophils # 0.1 K/mcL (0.0-0.6); Eosinophils % 1.4 %; Hematocrit 24.8 % (35.3-44.9); Hematocrit 25.1 % (35.3-44.9); Hemoglobin 7.3 g/dL (11.5-15.4); Immature Granulocytes % 0.7 % (0-4); Lymphocytes # 0.8 K/mcL (0.6-4.6); Lymphocytes % 9.7 %; Mean Corpuscular HGB Conc 29.1 g/dL (31.6-35.5); Mean Corpuscular Hemoglobin 21.4 pg (28.0-33.3); Mean Corpuscular Volume 73.6 fL (83.0-100.0); Mean Platelet Volume 9.4 fL (9.4-12.4); Monocytes # 0.6 K/mcL (0.0-1.3); Monocytes % 7.2 %; Nucleated Red Blood Cells 0.3 /100 WBC (0); Platelet Count 403 K/mcL (140-400); Red Blood Count 3.41 M/mcL (3.82-4.97); Red Cell Distribution Width 21.3 % (11.5-14.5); Segmented Neutrophils % 80.5 %; White Blood Count 8.6 K/mcL (4.3-11.1)
[2020-04-21 02:31] LABS: BUN/Creatinine Ratio 7 (6-26); Blood Urea Nitrogen 4 mg/dL (6-20); Calcium 8.5 mg/dL (8.6-10.3); Carbon Dioxide 24 mEq/L (23-29); Chloride 108 mEq/L (98-107); Glucose 104 mg/dL (70-105); Osmolality,Calculated 285 (280-300); Phosphorous 3.2 mg/dL (2.7-4.5); Potassium 3.4 mEq/L (3.5-5.1); Sodium 139 mEq/L (136-145); eGFR For African Americans > 60 (> 60); eGFR For Non-African Americans > 60 (> 60)
[2020-04-21] MEDS: Pantoprazole 40 MG in 0.9 % Sodium Chloride Mini Bag 100 ML IVC SCH (03:13)
[2020-04-21] MEDS ORDERED: Potassium Chloride 20 MEQ, Lidocaine 1% 2 ML in 0.9 % Sodium Chloride 250 ML IVPB ONE (07:57)
[2020-04-21] MEDS ORDERED: Iron Sucrose Complex 250 MG in 0.9 % Sodium Chloride 250 ML IVPB SCH (09:00)
[2020-04-21] MEDS: Nicotine 21 MG PATCH.TD24 TD SCH (13:35)
[2020-04-21 14:55] VITALS: BP 133/92
== END 2020-04-21 18:46 | disposition home or self-care (01) | DRG 394 ==
LOC: EMEROOARM 09:37 → 3ANU 09:37 → SUATTDRO 12:58 → 3ANU 13:52 → SUATTDRO 04-20 11:49
PROVIDERS: ADMIT Internal Medicine; ATTEND Family Medicine
PROC: ENDOCBX (2020-04-21 13:00)